=== PATIENT | male | born 1965 | race Caucasian/White ===

== ENCOUNTER 2023-09-21 05:03 | Inpatient (IN) ==
--- NOTE | 2023-09-06 09:30 | History & Physical Report ---
Date of Service September 06, 2023 date of surgery: 09/21/23 Procedure: Left knee Poly Exchange Surgeon: Nic Pineda, DO Assessment & Plan (1) Painful total knee replacement, left: Plan: Risk and benefits of the procedure were discussed, he would like to proceed with surgical invention. Plan to be left knee poly exchange. Will discuss with anesthesia about possible outpatient if acceptable. Will set up with home health physical therapy for 2 weeks, placed on aspirin 81 mg twice a day for 1 month postop DVT prophylaxis. He follow-up in the office 2 weeks after surgery or sooner if he is having any issues The risks and benefits have been discussed including, but not limited to, risk of infection, nerve injury, stiffness, loss of motion, failure to improve, etc. Reasonable outcomes and options of treatment were discussed. An explanation of appropriate alternatives to the procedure that may be advantageous were discussed and their risks and benefits, as well as the risks and benefits of not proceeding with treatment. I offered to answer any additional inquiries concerning the treatment involved. All the patient's questions were answered. The patient is agreeable, understanding of the treatment plan and alternatives, and wishes to proceed with the treatment plan. History of Present Illness Chief Complaint: left knee pain Primary Care Provider: NO PCP Miles is a pleasant 58-year-old male who presented for preop prior to upcoming left knee surgery. He has a history of left total knee arthroplasty in August 2012 and was doing well up until couple weeks ago. States he was just sitting and got up and when he pushed off his knee felt a pop in his knee. Since that time has had pain swelling and decreased range of motion. He was seen and evaluated by Dr. Pineda and examination is consistent with broken polyethylene post. Otherwise x-rays showed no acute findings Allergies Allergy/AdvReac Type Severity Reaction Status Date / Time No Known Allergies Allergy Verified 09/06/23 08:57 Home Medications Medication Instructions Recorded Confirmed Type loratadine 10 mg tablet (Claritin) 10 mg PO DAILY PRN Allergy Symptoms 09/06/23 09/06/23 History omeprazole 40 mg capsule,delayed 40 mg PO DAILY PRN Acid Reflux 09/06/23 09/06/23 History release tamsulosin 0.4 mg capsule 0.4 mg PO DAILY 09/06/23 09/06/23 History Past Med/Surg History Medical History Paresthesia of left arm per pt can not lift arm over head--happened after accident 1977 (ORIF in that arm) History of kidney stones BPH (benign prostatic hyperplasia) History of COVID-19 Fall 2019--mild symptoms (fatigue, loss of taste/smell), no symptoms now Snores Surgical History History of carpal tunnel surgery of right wrist History of repair of right rotator cuff History of open reduction and internal fixation (ORIF) procedure 1977 left arm--hardware in place History of total left knee replacement (TKR) History of cystoscopy History of colonoscopy History of tooth extraction History of tonsillectomy History of left mastoidectomy Family History Other No family history of adverse response to anesthesia Social History Smoking Status: Never smoker Tobacco Type: Smokeless Tobacco (Dip or Chew) Second Hand Exposure: No; Do You Dip or Chew Tobacco: Yes (chew snuff (advised on policy)); Tobacco Cessation Education Requested by Patient: No Hx Alcohol Use: Yes Alcohol type: beer Hx Substance Use: No Preferred Language: Tristanian Communication Ability: Effective 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 Beliefs That Will Affect Care: None Current Living Situation: Alone Other Information That Helps Us Care for You: No Feels Safe at Home: Yes Safety Concerns: Feels Safe At This Time Assistive Devices: None Review of Systems Review of Systems: All systems reviewed & are unremarkable except as noted in HPI & below Constitutional: no fever, no chills and no sweats Respiratory: no cough and no dyspnea Cardiovascular: no chest pain, no dyspnea and no orthopnea Gastrointestinal: no abdominal pain, no nausea and no vomiting Musculoskeletal: as per Subjective / HPI Physical Exam Physical Exam: HT: 5ft 11in WT: 99.8kg Constitutional: WD/WN, vitals as above no acute distress Respiratory: normal respiratory effort, lungs clear to auscultation no respiratory distress, no labored breathing and does not use accessory muscles Cardiovascular: RRR, no murmur, no edema Gastrointestinal (Abdomen): normal bowel sounds, soft, nontender, no hepatosplenomegaly Musculoskeletal: Knee: + knee abnormal to inspection (LEFT KNEE), + effusion (+1 effusion), + surgical incision (well healed midline incision), + limited ROM of knee (ROM 0/3/115) and + joint line tenderness (medial joint line); no de formity, no skin erythema, no ecchymosis, no crepitation with knee ROM, no valgus laxity and no varus laxity Results & Data Results & Data Diagnostic Findings LEFT KNEE 3 VIEWS History: Left total knee arthroplasty FINDINGS: The patient is status post a left total knee arthroplasty. The hardware is intact. No fracture or dislocation. IMPRESSION: Left total knee arthroplasty. No evidence for hardware complication.
--- NOTE | 2023-09-06 11:13 | PAT Medication Instructions ---
Medication Instructions Date of Service September 06, 2023 Home Medications loratadine 10 mg tablet (Claritin) 10 mg PO DAILY PRN omeprazole 40 mg capsule,delayed release 40 mg PO DAILY PRN tamsulosin 0.4 mg capsule 0.4 mg PO DAILY Continue as directed tamsulosin 0.4 mg capsule 0.4 mg PO DAILY omeprazole 40 mg capsule,delayed release 40 mg PO DAILY PRN(if needed) DO NOT take the morning of surgery loratadine 10 mg tablet (Claritin) 10 mg PO DAILY PRN Other Notes NOTHING TO EAT OR DRINK AFTER MIDNIGHT. If you have any questions please call us at [phone] or [phone] or [phone] or [phone]
--- NOTE | 2023-09-08 08:24 | Anesthesiology Consultation ---
Date of Service September 08, 2023 Assessment & Plan (1) Encounter for pre-operative examination: - PCP appt 09/13/23 [facility]. - patient is acceptable to proceed as same day surgery per Dr. Simon. Chart Review Chart Review: Pending: Refer to Additional Notes / Consult section and Patient seen in Pre Admission Testing Teaching & Discussion Pre-Anesthesia Teaching/Discussion Notes: Instructed NPO after midnight before surgery, except medications with 15 cc of water. Medication instructions provided according to the PAT guidelines. History Surgery Operation Date: 09/21/23 10:35 Proposed Procedures p Left knee Poly Exchange Broken Post - Nic Pineda DO Height/Weight Height: 5 ft 11 in Weight: 99.79 kg Allergies Allergy/AdvReac Type Severity Reaction Status Date / Time No Known Allergies Allergy Verified 09/06/23 08:57 Medications Home Medications Medication Instructions Recorded Confirmed Last Taken loratadine 10 mg tablet (Claritin) 10 mg PO DAILY PRN Allergy Symptoms 09/06/23 09/06/23 Unknown omeprazole 40 mg capsule,delayed 40 mg PO DAILY PRN Acid Reflux 09/06/23 09/06/23 Unknown release tamsulosin 0.4 mg capsule 0.4 mg PO DAILY 09/06/23 09/06/23 Unknown Past Medical History Medical History BPH (benign prostatic hyperplasia) GERD (gastroesophageal reflux disease) controlled, stable per pt History of COVID-fall--mild symptoms (fatigue, loss of taste/smell), no symptoms now History of kidney stones Paresthesia of left arm per pt can not lift arm over head--happened after accident 1977 (ORIF in that arm) Sleep-disordered breathing snoring and witnessed apneas, has not had sleep apnea study Patient denies h/o stroke, seizures, heart attack, heart failure, DM, HTN, blood clots/DVTs or blood transfusions. Exercise / Class Metabolic Activity II 4-5 Yardwork/Stairs/Walk up hill (denies chest discomfort or shortness of dada ath with 1 FOS) Past Family History Family History Other No family history of adverse response to anesthesia Past Surgical History Surgical History History of carpal tunnel surgery of right wrist History of colonoscopy History of cystoscopy History of left mastoidectomy History of open reduction and internal fixation (ORIF) procedure 1978 left arm--hardware in place History of repair of right rotator cuff History of tonsillectomy History of tooth extraction History of total left knee replacement (TKR) Past Anesthesia History No Family Hx of Anesthesia Complications and Other (post-op urinary retention) History of PONV No Hx of PONV and No Hx of Motion Sickness Social History Smoking Status: Never smoker Do You Dip or Chew Tobacco: Yes (chew snuff (advised on policy)) Hx Alcohol Use: Yes Alcohol type: beer alcohol intake frequency: a few times a week Hx Substance Use: No substance use type: does not use Review of Systems Patient denies chest pain, shortness of breath, dyspnea on exertion, fever, chills, cough, wheezing, or palpitations. Physical Exam Vital Signs Vitals BP 110/74 P 76 TEMP 97.7 SP02 95% on RA RESP 18 Physical Patient resting comfortably in chair in no acute distress, alert and oriented, responding appropriately throughout visit Full cervical extension range of motion without pain TMD 3.5 finger breadths Mallampati Score 2 Dentition: intact, denies chipped or loose teeth, caps/crowns, implants or bridges Lungs: normal respiratory effort. Good air movement, clear throughout to auscultation, no adventitious breath sounds Cardiac: regular rate and rhythm, no murmurs noted Carotid arteries: negative bruit bilat Lab Results Anesthesia Preop Results Results Anesthesia Widget: WBC 5.40 K/ul (4.8-10.8) 09/08/23 Hgb 16.1 g/dl (14.0-18.0) 09/08/23 Hct 48.8 % (42.0-52.0) 09/08/23 Plt 212 K/uL (130-400) 09/08/23 Na 139 mmol/L (136-145) 09/08/23 K 4.8 mmol/L (3.5-5.1) 09/08/23 Cl 105 mmol/L (98-107) 09/08/23 CO2 29 mmol/L (21-32) 09/08/23 BUN 19 mg/dl (6-23) 09/08/23 Creat 0.91 mg/dl (0.6-1.4) 09/08/23 Glucose Level 111 mg/dl (70-99(Fasting)) H 09/08/23 PT 11.0 Seconds (9.0-12.0) 09/08/23 PTT 27 Seconds (21-31) 09/08/23 INR 1.0 (0.9-1.1) 09/08/23 HA1c 6.4 % (4.5-5.6) H 09/08/23 Urine Color Yellow 09/08/23 Urine Appearance Clear (Clear) 09/08/23 Urine pH 5.5 (4.5-7.5) 09/08/23 Urine Specific [place] 1.009 (1.000-1.030) 09/08/23 Urine Protein Negative (Negative) 09/08/23 Urine Glucose (UA) Negative (Negative) 09/08/23 Urine Ketones Negative (Negative) 09/08/23 Urine Blood Negative (Negative) 09/08/23 Urine Nitrite Negative (Negative) 09/08/23 Urine Bilirubin Negative (Negative) 09/08/23 Urine Urobilinogen Negative (Negative) 09/08/23 Urine Leukocyte Esterase Negative (Negative) 09/08/23 Blood Type A Positive 09/08/23 Antibody Screen NEGATIVE 09/08/23 Testing Electrocardiogram Date: 09/08/23 NSR, rate 60 bpm Chest X-Ray Date: 09/08/23 No acute cardiopulmonary findings.
[2023-09-21] MEDS: LR 500ML BOLUS, THEN 15ML/HR IV SCH (05:36)
[2023-09-21] MEDS: ACETAMINOPHEN 500 MG TAB PO SCH (05:50)
[2023-09-21] MEDS: LR 60ML/HR IV SCH (05:51)
[2023-09-21] MEDS: CeleBREX 200 MG CAP PO SCH (05:51)
[2023-09-21] MEDS: GABAPENTIN 300 MG CAP PO SCH (05:51)
[2023-09-21] MEDS: METOCLOPRAMIDE HCL 10 MG TABLET PO SCH (05:51)
[2023-09-21] MEDS: dexAMETHasone**PF** 10 MG/ML VIAL IV SCH (05:51)
[2023-09-21] MEDS: FAMOTIDINE 20 MG TAB PO SCH (05:51)
[2023-09-21] MEDS ORDERED: MIDAZOLAM HCL 1 MG/ML 2ML VIAL ONE ×2 (06:26→07:28)
[2023-09-21] MEDS ORDERED: PROPOFOL IV EMULSION 10 MG/ML 100 ML VIAL IV ONE (06:27)
[2023-09-21] MEDS ORDERED: LIDOCAINE 2% 2 ML VIAL/AMP(20MG/ML) INFIL ONE (06:27)
[2023-09-21] MEDS ORDERED: GLYCOPYRROLATE 0.2 MG/ML VIAL ONE (06:27)
[2023-09-21] MEDS ORDERED: ONDANSETRON INJ 2 MG/ML 2 ML VIAL ONE (06:27)
[2023-09-21] MEDS ORDERED: BUPIVACAINE 0.5 % 5 MG/1 ML PF 10ML VIAL ONE (06:29)
[2023-09-21] MEDS ORDERED: BUPIVACAINE 0.25% PF 30 ML VIAL ONE (06:29)
[2023-09-21] MEDS ORDERED: ePHEDrine sulfate 50 MG/ML AMP IV PRN (06:50)
[2023-09-21] MEDS ORDERED: ONDANSETRON INJ 2 MG/ML 2 ML VIAL IV PRN ×2 (06:50→08:47)
[2023-09-21] MEDS ORDERED: fentaNYL citrate PF 100 MCG/2 ML VIAL IV PRN (06:50)
[2023-09-21] MEDS ORDERED: ATROPINE SULFATE 0.1 MG/ML 10ML SYR IV PRN (06:50)
[2023-09-21] MEDS: TRANEXAMIC ACID 1,000 MG **IV Pre-op IV SCH (07:13)
[2023-09-21] MEDS ORDERED: MEPIVACAINE HCL 1.5% 30 ML VIAL ONE (07:13)
--- NOTE | 2023-09-21 07:16 | History & Physical Bridge Note ---
Date of Service September 21, 2023 History & Physical Bridge Note I have examined the patient, reviewed the History & Physical and in the interval since the performance of the History & Physical I have noted the following changes of clinical significance: no changes noted
[2023-09-21] MEDS: ceFAZolin 2000MG 2,000 MG/15 ML SYR IV SCH (07:39)
[2023-09-21] MEDS: TRANEXAMIC ACID 1,000 MG **IV Intra-op IV SCH (08:18)
--- NOTE | 2023-09-21 08:26 | Operative Report ---
Post Operative Report Pre & Post Diagnosis Operation Date: 09/21/23 07:15 Pre-Op Diagnosis: Painful total knee replacement, left Post-Op Diagnosis: Painful total knee replacement, left I identified the patient and participated in the time-out.: Yes Procedure Operation Date: 09/21/23 07:15 Actual Procedures p Left Knee Poly Exchange - Broken Post(Left)Poly changed to size 15 for broken post - Nic Pineda DO Surgeon Nic Pineda DO Dining Car Waiter/Waitress Lb SOLIS Estimated Blood Loss 5 Findings Consistent with Post-Op Diagnosis Patient presents with broken postop polyethylene of a Legion total knee art hroplasty Specimens Broken poly Drains Medium bore Hemovac Anesthesia Type MAC Spinal Regional Complications none Disposition Accompanied Patient To Recovery: No Disposition: Recovery Room Indications Patient presents with pain instability after having a broken post total knee arthroplasty patient presents for poly change Description of Procedure After initiation of the general regional anesthesia of the left lower extremity subcu prep draped in sterile fashion surgical site utilizing anterior midline incision dissection carried down to the extensor mechanism medial parapatellar incision was made the poly was inspected synovectomies performed the poly was removed was broken at the base of the post distal stump of the post as well as the poly was removed it was resized that size 15/15 poly was placed after proper irrigation debridement lavage meticulous hemostasis was obtained and maintained at all times the poly having been changed the wound was closed over a deep fascia subcu and skin with #1 Vicryl running V-Loc subcu with 2 oh and skin with running strata fix with skin glue and a Prevena a sterile compressive dressing placed using a medium bore Hemovac in place IRMA Schultz was asked to spend the case assisted in exposure removal Poly replacement poly and wound closure was necessary for the case I attest to the content of the Intraoperative Record and any orders documented therein. Any exceptions are noted below.
[2023-09-21] MEDS: ROPIVACAINE 0.5% HCL/PF 246 MG, Ketorolac (*for OR use only*) 30 MG, EPINEPHrine 30MG/3... INFIL SCH (08:40)
[2023-09-21] MEDS ORDERED: METOCLOPRAMIDE HCL INJ 5 MG/ML 2 ML VIAL IV PRN (08:47)
[2023-09-21] MEDS ORDERED: HYDROmorphone INJ 1 MG/ML SYRINGE IV PRN (08:47)
[2023-09-21] MEDS ORDERED: NALOXONE HCL 0.4 MG/1 ML VIAL/CARP IV PRN (08:47)
[2023-09-21] MEDS: ORTHO JOINT ANESTHETIC ONE (08:48)
[2023-09-21] MEDS ORDERED: SODIUM CHLORIDE 0.9% 1,000 ML IV SCH (09:00)
--- NOTE | 2023-09-21 09:38 | XRay Report ---
XR knee LT 1 or 2V routine HISTORY: 58 years-old Male Surgical Post Op left knee arthroplasty COMPARISON: 08/16/2012 TECHNIQUE: 2 views of the left knee FINDINGS: Cortical thickening of the femoral diaphysis is partially imaged compatible with a healed chronic fra cture. Total joint arthroplasty with patellar resurfacing and anterior midline skin juan jose. Soft tis izzy swelling with deep tissue air, likely expected postoperative changes. IMPRESSION: 1. No acute fracture or dislocation. 2. Satisfactory alignment of the total joint arthroplasty. ACT 112: Negative or not required by law. The above report was generated using voice recognition software. It may contain grammatical, syntax o r spelling errors. Electronically signed by: Rafat Rendon M.D. 09/21/2023 9:37 AM
[2023-09-21] MEDS: oxyCODONE HCL IR 5 MG TAB (IMMEDIATE RELEASE) PO PRN (11:37)
--- NOTE | 2023-09-21 15:50 | Anesthesiology Progress Note ---
Date of Service September 21, 2023 Anesthesia Post Procedure Vital Signs Vital Signs: Temp Pulse Pulse Resp BP Pulse Ox Pulse Ox 09/21/23 14:09 95 09/21/23 12:15 36.5 C 85 18 120/95 94 09/21/23 11:15 71 18 108/72 95 09/21/23 10:45 36.5 C 72 18 108/62 93 09/21/23 10:12 36.6 C 66 18 106/71 94 09/21/23 10:05 67 20 111/71 94 09/21/23 09:55 36.3 C L 61 18 110/76 95 09/21/23 09:45 60 16 98/62 L 96 09/21/23 09:35 60 18 101/72 97 09/21/23 09:25 59 L 12 108/62 97 09/21/23 09:15 62 16 103/67 98 09/21/23 09:05 63 18 99/61 L 98 09/21/23 08:55 70 14 103/66 97 09/21/23 08:46 36.4 C L 75 16 108/72 96 09/21/23 05:37 36.5 C 67 20 128/81 97 O2 Del Method O2 Flow Rate 09/21/23 14:09 09/21/23 12:15 Room Air 09/21/23 11:15 Room Air 09/21/23 10:45 Room Air 09/21/23 10:12 Room Air 09/21/23 10:05 Room Air 09/21/23 09:55 Room Air 09/21/23 09:45 Room Air 09/21/23 09:35 Oxymask 2 09/21/23 09:25 Oxymask 2 09/21/23 09:15 Oxymask 2 09/21/23 09:05 Oxymask 4 09/21/23 08:55 Oxymask 4 09/21/23 08:46 Oxymask 6 09/21/23 05:37 Room Air Pain Intensity Left Knee: Pain Intensity: 2 Transfer of Care Handoff Completed per policy Notes Mental Status: alert / awake / arousable and participated in evaluation Patient Amnestic to Procedure: Yes Nausea / Vomiting: adequately controlled Pain: adequately controlled Airway Patency, RR, SpO2: stable & adequate BP & HR: stable & adequate Hydration State: stable & adequate Neuraxial Anesthesia: was administered and sensory block resolved Anesthetic Complications: no major complications apparent and Pt Satisfied with anesthetic care
--- NOTE | 2023-09-22 07:14 | Discharge Summary ---
Date of Service date of discharge: September 21, 2023 date of admission: 09/21/23 Admission HPI Per Admitting Provider Miles is a pleasant 58-year-old male who presented for preop prior to upcoming left knee surgery. He has a history of left total knee arthroplasty in August 2012 and was doing well up until couple weeks ago. States he was just sitting and got up and when he pushed off his knee felt a pop in his knee. Since that time has had pain swelling and decreased range of motion. He was seen and evaluated by Dr. Hamilton and examination is consistent with broken polyethylene post. Otherwise x-rays showed no acute findings Principal Diagnosis left knee poly exchange for broken post Discharge Exam Musculoskeletal left knee: NVDI, calf SNT, negative lawrence sign. DP palpable, able to wiggle toes/ankle movement without difficulty. dressing clean dry and intact. Discharge Data Allergies Allergy/AdvReac Type Severity Reaction Status Date / Time No Known Allergies Allergy Verified 09/21/23 05:33 Procedures Performed Operation Date: 09/21/23 07:15 Actual Procedures p Left Knee Poly Exchange - Broken Post(Left) - Nic Hamilton DO Ordered Studies 09/21/23 05:00 US - OR guided needle placemen Routine Total Time Total Time Spent Total Time Spent (In Minutes): 20 Discharge Plan Discharge Items Patient Disposition: Home - Home Health Services Reason For Visit: Painful Total Knee Left Discharge Diagnosis: left knee poly exchange Activity: Per Instructions section Weightbearing Comment: WBAT with walker Non-emergency contact: Surgeon Call non-emergency contact if: you have any medication questions, your tempe rature is above 101, your wound has increased redness, your wound has increased drainage and your wound pain has increased Follow-up/Referrals: Angela Hyde NP [Primary Care Provider] - Diet: Regular Addtl Attending Provider Instructions: ACTIVITY RECOMMENDATIONS: SELF CARE INSTRUCTIONS AFTER TOTAL KNEE REPLACEMENT A. You may need to continue a physical therapy program after discharge from the hospital. There are several options available to you. Your doctor will assist you in selecting the best one for you. 1. An out-patient facility 2 to 3 times a week for therapy or home therapy. 2. Continue working on all exercises taught to you in the hospital. Your goals should be to increase bending of your knee to 90 degrees and beyond and to fully straighten your knee. B. You may progress at your own pace from walking with a walker or crutches to a cane; then to no assistive devices. C. Make walking a part of your daily routine. Be up as much as comfortable with rest periods throughout the day. Rest with leg elevation is very important. Use the ice wrap frequently for the first 3-4 weeks. D. There are no restrictions on activities. You may ride in a car, shop, participate in vehicle check in clerk and all social activities. E. Wear the long elastic stockings (KAYLEIGH hose) 20 hours a day for 2 weeks after surgery. They can be removed several times a day for laundering and for a bath. F. You may shower, no tub baths until cleared by your doctor. SPECIAL CARE INSTRUCTIONS: VERY IMPORTANT TO READ AND REVIEW A. There are a few signs you need to watch for after you are home. Call [facility] if you notice any of the followin. Increased severe knee pain. Some pain is expected especially when you exercise. 2. Increased swelling in your leg or knee; pain or swelling of the calf muscle in either lower leg. 3. Any fluid drainage from the incision. 4. Shortness of breath or chest pain. B. Please call [facility] at if you have any concerns or questions about your operation or recovery. The doctor or his nurse will return your call promptly. C. You must take antibiotics before dental work, bladder, bowel or other surgery. Your doctor will provide you with a permanent care to carry describing this precaution. IMPORTANT: * REMEMBER TO TAKE ASPIRIN, 81 MG, TWICE DAILY FOR 4 WEEKS UNLESS OTHERWISE DIRECTED. THIS IS YOUR BLOOD THINNER. * HIGH RISK PATIENTS MAY BE PRESCRIBED A STRONGER BLOOD THINNER. THIS WILL BE PROVIDED AT DISCHARGE. * CALL IF INCREASED PAIN, REDNESS, DRAINAGE OR FEVER GREATER THAT 101. * WEAR KAYLEIGH HOSE 20 HOURS PER DAY FOR 2 WEEKS. DRESSING INSTRUCTIONS * ELLI Dressing- This is a large suction dressing covering your incision. This will help pull any excess drainage from the wound and allow your incision to heal properly. You may shower with this if you can keep the unit outside of the shower. If any bleeding or leakage is noted please call your doctor's office. This will remain on your incision for 7 days and then should be removed. This can be done yourself or by the home nursing staff if applicable. The entire unit is disposable once removed. Once removed, keep incision clean and dry. If redness or drainage is noted, please call your surgeon. ONCE ELLI IS REMOVED, FOLLOW THESE INSTRUCTIONS: DERMABOND Prineo- This is a mesh tape dressing that is covered with glue. It should remain in place until the incision is properly healed, usually 10-14 days . This dressing is designed to naturally slough off. You may trim the excess mesh tape as it peels off. Incision may be briefly wet in a shower. Dry immediately by blotting with a clean, dry towel. Do not bath or swim until instructed by your doctor. Do not scratch, rub, or pick at the dressing. Do not apply any topical ointments or lotions until dressing is completely removed and/or instructed by your doctor. There may be a small piece of suture material at one end of your incision. Do not pull or trim this. If it is bothersome or catching on clothing, you may cover it with a band-aid. IF INCISION IS LEAKING THROUGH DRESSING, CALL THE OFFICE . FOLLOW UP VISIT: If appointment is not already scheduled: Please call [facility] to make a follow-up appointment for 2 weeks after your surgery at . Pending Studies at Discharge: No Stand-Alone Forms: Anesthesia/Sedation, Adult, [facility] Medications and DC Order Prescriptions: New celecoxib [Celebrex] 200 mg capsule 200 mg PO BID 30 Days Qty: 60 0RF aspirin 81 mg tablet,delayed release (DR/EC) 81 mg PO BID 30 Days Qty: 60 0RF acetaminophen 500 mg tablet 1,000 mg PO Q8 21 Days Qty: 126 0RF cefadroxil 500 mg capsule 500 mg PO BID 14 Days Qty: 28 0RF docusate sodium 100 mg Capsule 100 mg PO BID Qty: 20 0RF oxycodone 5 mg tablet 5 - 10 mg PO Q6H PRN (Reason: pain) Qty: 30 0RF Rx Instructions: initial therapy, supervising dr estrada hamilton. max 6 tabs in 24 hours Continued omeprazole 40 mg Capsule,Delayed Release(Dr/Ec) 40 mg PO DAILY PRN (Reason: Acid Reflux) tamsulosin 0.4 mg Capsule 0.4 mg PO DAILY Patient Comments: pt states he just takes sometime throughout the day, no scheduled time loratadine [Claritin] 10 mg Tablet 10 mg PO DAILY PRN (Reason: Allergy Symptoms) Discharge Orders: Discharge Order (Routine); Ordered 09/21/23 Ordered By: Lb Duncan/Other Patient Handouts: DVT Post Op Prevention Admission Data Admit Date/Time: 09/21/23 11:31 Attending Provider: Nic Hamilton Admit Provider: Nic Hamilton Primary Care Provider: Angela Hyde Other Interventions: Discharge Summary Assessment (RN) Last Done: 09/21/23 13:20
== END 2023-09-21 13:23 | disposition home or self-care (01) | DRG 468 ==
LOC: ASU 05:03 → PACUINP 11:31
DX: Z87.442 Personal history of urinary calculi; F17.220 Nicotine dependence, chewing tobacco, uncomplicated; T84.013A Broken internal left knee prosthesis, initial encounter; Z86.16 Personal history of COVID-19; Y92.009 Unspecified place in unspecified non-institutional (private) residence as the place of occurrence of the external cause; T84.84XA Pain due to internal orthopedic prosthetic devices, implants and grafts, initial encounter; Z96.652 Presence of left artificial knee joint; Y79.2 Prosthetic and other implants, materials and accessory orthopedic devices associated with adverse incidents; K21.9 Gastro-esophageal reflux disease without esophagitis